=== PATIENT | male | born 1980 | race Caucasian/White ===

== ENCOUNTER 2019-07-01 12:31 | Inpatient (IN) | payer OTHER, BC ==
[2019-06-28 22:00] VITALS: BP 126/74
[2019-07-01] VITALS (12 sets, daily range): BP systolic 114–151; BP diastolic 60–104; Ht 180.3 cm; Wt 93.6 kg
[~2019-07-01] VITALS: Ht 180.3 cm; Wt 93.6 kg
--- NOTE | 2019-07-01 13:05 | NUR ---
PT ARRIVED TO UNIT AT THIS TIME VIA AMBULANCE, ALERT AND ORIENTED. NO ACUTE DISTRESS NOTED. STABLE. SINUS RHYTHM. DR SANDHU NOTIFIED, ORDERS RECIEVED. FAMILY AT BEDSIDE. CALL LIGHT IN REACH. WILL CONTINUE PLAN OF CARE.
--- NOTE | 2019-07-01 14:22 | NUR ---
PT COMPLAINT OF CHEST PAIN STATING IS A 2/10. EKG OBTAINED, NO CHANGE FROM PREVIOUS EKG. DR SANDHU NOTIFIED, ORDER RECIEVED FOR MORPHINE 2-5MG IV Q3H PRN FOR CHEST PAIN. WILL CONTINUE PLAN OF CARE.
--- NOTE | 2019-07-01 14:40 | NUR ---
PT RECIEVED 2MG IV MORPHINE PER PHYSICIAN ORDERS TO START AT 2MG (MAY ADMIN UP TO 5MG FOR PAIN IF NEEDED PER DR SANDHU) PER ORDERS. FAMILY AT BEDSIDE. QUESTIONS AND CONCERNS ADRESSED. 1506: PT STATES PAIN IS GONE, NO CURRENT NEEDS OR CONCERNS. VSS. WILL CONTINUE PLAN OF CARE.
--- NOTE | 2019-07-01 15:00 | NUR ---
TR BAND BEGAN TO DEFLATE PER ORDERS AT THIS TIME. NO S/S BLEEDING OR HEMATOMA, HAND WARM, PERIPHERAL PULSES PRESENT. NO ACUTE DISTRESS NOTED. WILL CONTINUE PLAN OF CARE.
--- NOTE | 2019-07-01 16:49 | NUR ---
TR BAND HAD BEEN REMOVED AFTER AIR HAD BEEN DECREASED PER PROTOCOL. NO S/S OF BLEEDING OR HEMATOMA. ALL PERIPHERAL PULSES PRESENT. NO ACUTE DISTRESS NOTED. PT DENIES ANY NEEDS. WILL CONTINUE PLAN OF CARE.
--- NOTE | 2019-07-01 17:20 | NUR ---
LYING IN BED RESTING AT THIS TIME. NO ACUTE DISTRESS NOTED. RESPIRATIONS STEADY AND UNLABORED. AWAKENS EAILY WHEN SPOKEN TO. VSS. NO S/S BLEEDING OR HEMATOMA TO RT RADIAL SITE. PERIPHERAL PULSES PRESENT. INDEPENDENT IN BED. WILL CONTINUE PLAN OF CARE.
--- NOTE | 2019-07-01 18:23 | NUR ---
NO CHANGE.NO ACUTE DISTRESS NOTED. PT DENIES ANY PAIN. VSS. WILL CONTINUE PLAN OF CARE.
--- NOTE | 2019-07-01 21:42 | NUR ---
HS MEDICATIONS RECEVIED - DENIES NEEDS OR PAIN
--- NOTE | 2019-07-01 23:39 | NUR ---
REASSESSMENT COMPLETED SEE FLOWSHEET
[2019-07-02] VITALS (8 sets, daily range): BP systolic 107–119; BP diastolic 56–88
--- NOTE | 2019-07-02 00:16 | NUR ---
PATIENT DENIES NEEDS AT THIS TIME , SETERNAL PAIN MINIMAL
--- NOTE | 2019-07-02 08:02 | NUR ---
UP IN BED EATING BREAKFAST AT THIS TIME, AT BEDSIDE. NO ACUTE DISTRESS NOTED. VSS. RT RADIAL SITE CDI, PULSES PRESENT, SKIN WARM. WILL CONTINUE PLAN OF CARE.
--- NOTE | 2019-07-02 09:55 | NUR ---
PER DR SANDHU, DISCHARGE PT HOME, FOLLOWUP IN CLINIC IN 3-4 WEEKS. PT UP IN CHAIR BESIDE BED. ALSO NOTIFIED PHYSICIAN THAT PTS PHARMACY IS NOT OPEN TODAY, DR SANDHU STATED THAT IT WAS OKAY TO WAIT UNTIL TOMORROW FOR MEDS TO BE FILLED LONG HE TAKES HIS PLAVIX TODAY BEFORE DISCHARGE. DISCHARGE MEDS INCLUDE METOPROLOL 25MG BID, PLAVIX 75MG DAILY, LIPITOR 40MG DAILY. NOTED WHEN PHYSICIAN INITIONALLY WROTE SCRIPT FOR METOPROLOL, IT WAS WRITTED FOR 50 MG BID, PT HAD BEEN RECIEVING 25MG DURING THIS HOSPITAL STAY, PHYSICIAN CALLED FOR CLARIFICATION REGARDING THIS ORDER AND HE STATED TO CHANGE IT TO 25 INSTEAD OF 50. PT AND PTS STATE THEY ARE ABLE TO OBTAIN MEDICATION TOMORROW AND WILL CALL CLINIC TOMORROW TO SCHEDULE AN APPOINTMENT. NO ACUTE DISTRESS NOTED. VSS. WILL CONTINUE PLAN OF CARE.
[2019-07-02] MEDS ORDERED: LIPITOR40 MG PO (10:04)
[2019-07-02] MEDS ORDERED: METOPROLOL TART25 MG PO (10:05)
[2019-07-02] MEDS ORDERED: PLAVIX75 MG PO (10:05)
--- NOTE | 2019-07-02 11:15 | NUR ---
PT DISCHARGED HOME AT THIS TIME. NO ACUTE DISTRESS NOTED. VSS. LEFT WITH ALL PERSONAL ITEMS, DISCHARGE PAPERWORK, HARD SCRIPTS FOR DISCHARGE MEDICATIONS, AND DISCHARGE TEACHINGS REGARDING DISCHARGE MEDICATIONS AND PROCEDURE/DIAGNOSIS. LEFT VIA PERSONAL VEHICLE WITH . IVS TO LT AND RT AC DCD, CATHETER TIPS INTACT. NO FURTHER ACTIONS.
--- NOTE | 2019-07-03 14:30 | DS ---
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 Downing. BRIEF HISTORY AND HOSPITAL COURSE: Presented initially to [facility] with acute inferior myocardial infarction, underwent primary PTCA. Upon admission here, he had no Q-waves. He had some mild T-wave changes in the inferior leads consistent with excellent early reperfusion. LV function was normal. Started on beta blockade, statin, dual antiplatelet. Discussed the details lifestyle modification, etc. We will see him back in the office in 3-4 weeks. TRANSINT:[id number] Voice Confirmation ID: [id number] DOCUMENT ID: [id number] NADEEN SANDHU MD at 1430 CC: [id number] DICTATION DATE: 07/02/19932 JANITOR AND CLEANER: 07/02/19 2232 DIS IN 07/02/19 [facility] [address] [place] [address]
--- NOTE | 2019-08-14 14:46 | DS ---
PATIENT:LLOYD WHITMORE :84 MEDICAL RECORD: [id number] DISCHARGE SUMMARY ADMISSION DATE: 07/01/19 DISCHARGE DATE: 07/02/19 HISTORY OF PRESENT ILLNESS: A 38-year-old gentleman transferred from [place] due to STEMI, diversion, previously had undergone PTCA stent of the LAD, transferred here, did well post-procedure, started on beta-ashlyn, statin and antiplatelet as well as aspirin. EF is normal at the time of transfer. He was discharged home in good condition. MEDICATIONS: Include Lipitor 40 mg p.o. every day, metoprolol 25 p.o. b.i.d., aspirin 81 every day, Plavix 75 every day. IMPRESSION: Activities as tolerated. DIET: AHA diet. FOLLOWUP: In the office in approximately 1 month. TRANSINT:[id number] Voice Confirmation ID: [id number] DOCUMENT ID: [id number] NADEEN SANDHU MD at 1446 CC: [id number] DICTATION DATE: 08/14/19 1317 SPOOLING MACHINE OPERATOR: 08/14/19 1343 DIS IN 07/02/19 [facility] [address] [place] [address]
== END 2019-07-02 11:26 | disposition home or self-care (01) | DRG 282 ==
LOC: D.ICU 12:31
PROVIDERS: ADMIT Internal Medicine Interventional Cardiology; ATTEND Internal Medicine Interventional Cardiology
DX: I21.19 ST elevation (STEMI) myocardial infarction involving other coronary artery of inferior wall (principal)

== ENCOUNTER 2020-01-05 19:58 | Emergency (ER) | payer BC ==
[~2020-01-05] VITALS: Ht 180.3 cm; Wt 97.7 kg
[~2020-01-05 19:58] MED LIST: LIPITOR40 MG PO; METOPROLOL TART25 MG PO; PLAVIX75 MG PO
[2020-01-05 20:17] VITALS: Ht 180.3 cm; Wt 97.7 kg
[2020-01-05] MEDS ORDERED: IBUPROFEN800 MG PO (21:47)
[2020-01-05 22:18] VITALS: BP 136/77
== END 2020-01-05 22:18 | disposition home or self-care (01) ==
LOC: D.ER 19:58
DX: S90.122A Contusion of left lesser toe(s) without damage to nail, initial encounter (principal); W22.8XXA Striking against or struck by other objects, initial encounter; Y93.9 Activity, unspecified; Y92.9 Unspecified place or not applicable; I25.2 Old myocardial infarction; Z72.0 Tobacco use; K21.9 Gastro-esophageal reflux disease without esophagitis